=== PATIENT | male | born 1970 | race Caucasian/White ===

== ENCOUNTER 2019-01-02 07:34 | Emergency (ER) | payer OTHER ==
[~2019-01-02] VITALS: Ht 182.9 cm; Wt 74.8 kg
[2019-01-02] MEDS ORDERED: DOXYCYCLINE 100 MG (VIBRAMYCIN) TABLET PO STA (08:22)
[2019-01-02] MEDS ORDERED: DOXY100T2 PO (08:26)
--- NOTE | 2019-01-02 08:27 | ED Integumentary General ---
General Chief Complaint: Bite-Animal/Human/Insect Stated Complaint: TICK HEAD REMOVAL Nursing Triage Note: Patient states he discovered a tick on his scrotum last night in the shower, states he pulled the body out, but believes the head remained. Source: patient, RN notes reviewed Exam Limitations: no limitations History of Present Illness Date Seen by Provider: January 02, 2019 Time Seen by Provider: 07:58 Initial Comments Patient presents c/ c/o having a tick head embedded in the skin of his scrotum. Found the tick last PM and in effort of removing it accidental pulled the head off the body and has been unable to removed the embedded head. Timing/Duration: other (last PM) Location: genitalia Possible Cause: insect bite (tick) Modifying Factors: improves with other (none) Associated Symptoms: denies symptoms Allergies and Home Medications Allergies Coded Allergies: No Known Drug Allergies (Unverified , 01/02/19) Home Medications Doxycycline Hyclate 100 Mg Tablet, 100 MG PO BID Prescribed by: ARMANDO HERNANDEZ on 01/02/19 0887 Patient Home Medication List Home Medication List Reviewed: Yes Review of Systems Review of Systems Constitutional: see HPI Skin: see HPI, other (embedded tick head scrotum) Past Xfihagv-Khefsm-Xuojri Hx Patient Social History Alcohol Use: Denies Use Recreational Drug Use: No Smoking Status: Current Someday Smoker Type Used: Cigarettes 2nd Hand Smoke Exposure: No Recent Foreign Travel: No Contact w/Someone Who Travel: No Recent Infectious Disease Expo: No Recent Hopitalizations: No Physical Abuse: No Sexual Abuse: No Mistreated: No Fear: No Seasonal Allergies Seasonal Allergies: No Past Medical History Surgeries: Yes (cyst removal left wrist) Respiratory: No Cardiac: No Neurological: Yes Spinal Cord Injury Genitourinary: No Gastrointestinal: No Musculoskeletal: No Endocrine: No HEENT: No Cancer: No Psychosocial: No Integumentary: No Physical Exam Vital Signs Vital Signs - First Documented 01/02/19 07:45 Temp 98.0 Pulse 67 Resp 20 B/P (MAP) 111/71 (84) Pulse Ox 97 O2 Delivery Room Air Capillary Refill : Less Than 3 Seconds General Appearance: WD/WN, no apparent distress Cardiovascular: regular rate, rhythm Respiratory: no respiratory distress Neurologic/Psychiatric: no motor/sensory deficits, alert, normal mood/affect, oriented x 3 Skin: warm/dry Skin Problem Location: other (embedded tick head noted on scrotum) Skin Problem Character: erythema (mild) Lymphatic: no adenopathy Procedures/Interventions I&D : Site: scrotum Blade Size: bevel of 18g needle Progress Prepped c/ Hibiclens. Finally got the head out using the bevel of an 18g needle under magnification. Minimal bleeding incurred. Patient tolerated the procedure well. Progress/Results/Core Measures Results/Orders My Orders Orders - ARMANDO HERNANDEZ DO Doxycycline Hyclate Tablet (Vibramycin T (01/02/19 08:22) Dipht,Pertuss(Acell),Tet Adult (Boostrix (01/02/19 08:30) Vital Signs/I&O 01/02/19 07:45 Temp 98.0 Pulse 67 Resp 20 B/P (MAP) 111/71 (84) Pulse Ox 97 O2 Delivery Room Air Blood Pressure Mean: 84 Departure Impression Primary Impression: Embedded tick scrotum Disposition: 01 HOME, SELF-CARE Condition: Stable Departure-Patient Inst. Decision time for Depature: 08:24 Referrals: VY DAY DO Patient Instructions: Insect Bites and Stings (DC) Scripts Doxycycline Hyclate (Doxycycline Hyclate) 100 Mg Tablet 100 MG PO BID for tick bite for 10 Days, #20 TAB 0 Refills Prov: ARMANDO HERNANDEZ DO 01/02/19 ARMANDO HERNANDEZ DO January 02, 2019 08:27
[2019-01-02] MEDS ORDERED: TETANUS,DIPTH,PERTUSS P/F (BOOSTRIX) 0.5 ML VIAL IM ONE (08:30)
[2019-01-02 09:00] VITALS: BP 125/78
== END 2019-01-02 09:00 | disposition home or self-care (01) ==
LOC: ER FS 07:37
DX: S30.853A Superficial foreign body of scrotum and testes, initial encounter (principal); F17.210 Nicotine dependence, cigarettes, uncomplicated; Z23 Encounter for immunization; W45.8XXA Other foreign body or object entering through skin, initial encounter
CPT/HCPCS: 90715; 99283

== ENCOUNTER 2019-01-19 15:48 | Emergency (ER) | payer OTHER ==
[~2019-01-19] VITALS: Ht 182.9 cm; Wt 74.8 kg
[~2019-01-19 15:48] MED LIST: DOXY100T2 PO
[2019-01-19] MEDS ORDERED: CYCL10TA9 PO (16:28)
[2019-01-19] MEDS ORDERED: TRAM50TA2 PO (16:28)
--- NOTE | 2019-01-19 16:28 | ED Upper Extremity ---
General Chief Complaint: Upper Extremity Stated Complaint: SHOULDER AND BACK PAIN Nursing Triage Note: Patient reports he was working at the [employer] pulling a large trailer by hand when he began having right shoulder/upper back pain. He states the pain is made worse by lifting heavy objects. Nursing Sepsis Screen: No Definite Risk Source: patient History of Present Illness Date Seen by Provider: January 19, 2019 Time Seen by Provider: 16:23 Initial Comments Patient is a 48-year-old male who presents after work with upper thoracic/right posterior shoulder pain. Patient reports feeling sharp pain while lifting a heavy trailer at work earlier this afternoon. Pain is rated moderate to severe reproduces with palpation and shoulder rotation. Patient states symptoms feel different than prior rotator cuff injury. Denies chest pain shortness of breath. No fever chills, sweats. No other acute symptoms or complaints. Onset: this afternoon Pain/Injury Location: right shoulder Method of Injury: twisted Allergies and Home Medications Allergies Coded Allergies: bee venom protein (honey bee) (Verified Allergy, Unknown, 01/19/19) Home Medications Doxycycline Hyclate 100 Mg Tablet, 100 MG PO BID Prescribed by: ARMANDO HERNANDEZ on 01/02/19 4298 Patient Home Medication List Home Medication List Reviewed: Yes Review of Systems Constitutional: see HPI EENTM: see HPI Cardiovascular: no symptoms reported Gastrointestinal: no symptoms reported Genitourinary: no symptoms reported Musculoskeletal: see HPI Psychiatric/Neurological: No Symptoms Reported Past Lcmzswx-Bmgeqb-Hjcwsy Hx Past Med/Social Hx: Reviewed Nursing Past Med/Soc Hx Patient Social History Type Used: Cigarettes 2nd Hand Smoke Exposure: No Recent Foreign Travel: No Contact w/Someone Who Travel: No Recent Infectious Disease Expo: No Recent Hopitalizations: No Seasonal Allergies Seasonal Allergies: No Past Medical History Surgeries: Yes (cyst removal left wrist) Respiratory: No Cardiac: No Neurological: Yes Spinal Cord Injury Genitourinary: No Gastrointestinal: No Musculoskeletal: No Endocrine: No HEENT: No Cancer: No Psychosocial: No Integumentary: No Physical Exam Vital Signs Vital Signs - First Documented 01/19/19 16:00 Temp 98.5 Pulse 77 Resp 16 B/P (MAP) 133/72 (92) Pulse Ox 97 O2 Delivery Room Air Capillary Refill : Less Than 3 Seconds Height, Weight, BMI Height: 6'" Weight: 165lbs. oz. 74.505497hx; BMI Method:Stated General Appearance: WD/WN, no apparent distress HEENT: PERRL/EOMI Neck: full range of motion, normal inspection Respiratory: normal breath sounds Shoulder: normal ROM, pain, soft tissue tenderness (right posterior shoulder blade, tenderness, reproducing complaints) Elbow/Forearm: normal inspection Wrist: Yes normal inspection Hand: normal inspection Progress/Results/Core Measures Results/Orders Vital Signs/I&O 01/19/19 16:00 Temp 98.5 Pulse 77 Resp 16 B/P (MAP) 133/72 (92) Pulse Ox 97 O2 Delivery Room Air Blood Pressure Mean: 92 Departure Communication (Admissions) Right shoulder muscle sprain. Will treat supportively with PCP follow-up. Impression Primary Impression: Shoulder pain, right Disposition: HOME, SELF-CARE Condition: Improved Departure-Patient Inst. Decision time for Depature: 16:26 Referrals: NO,LOCAL PHYSICIAN (PCP) Primary Care Physician Patient Instructions: Muscle Spasms (DC), Shoulder Pain (DC) Add. Discharge Instructions: Please take ibuprofen for pain and tramadol and Flexeril as needed for additional relief. Limit lifting to less than 20 pounds until follow-up with your work comp her primary care physician. All discharge instructions reviewed with patient and/or family. Voiced understanding. Scripts Cyclobenzaprine HCl (Cyclobenzaprine HCl) 10 Mg Tablet 10 MG PO Q8H PRN for SPASMS, #30 TAB 0 Refills Prov: KETTY DEL RIO DO 01/19/19 Tramadol HCl (Tramadol HCl) 50 Mg Tablet 50 MG PO Q6H PRN for PAIN for 3 Days, #20 TAB 0 Refills Prov: KETTY DEL RIO DO 01/19/19 KETTY DEL RIO DO January 19, 2019 16:28
--- OUTSIDE RECORDS SUMMARY | 2019-01-19 16:32 | XMS REPORT | Continuity of Care Document ---
Author Organization Unknown Address Unknown Allergies Active Description Code Type Severity Reaction Onset Reported/Identified Relationship to Patient Clinical Status Yes No Known Drug Allergies [id number] Drug Allergy Unknown N/A 01/02/2019 Medications There is no data. Problems Date Dx Coded Attending Type Code Diagnosis Diagnosed By 01/02/2019 ARMANDO HERNANDEZ DO, Ot F17.210 NICOTINE DEPENDENCE, CIGARETTES, UNCOMPL 01/02/2019 ARMANDO HERNANDEZ DO Ot S30.853A SUPERFICIAL FOREIGN BODY OF SCROTUM AND 01/02/2019 ARMANDO HERNANDEZ DO, Ot W45.8XXA OTH FOREIGN BODY OR OBJECT ENTERING THRO 01/02/2019 ARMANDO HERNANDEZ DO Ot Z23 ENCOUNTER FOR IMMUNIZATION 01/04/2019 ARMANDO HERNANDEZ DO Ot F17.210 NICOTINE DEPENDENCE, CIGARETTES, UNCOMPL 01/04/2019 ARMANDO HERNANDEZ DO, Ot S30.853A SUPERFICIAL FOREIGN BODY OF SCROTUM AND 01/04/2019 ARMANDO HERNANDEZ DO, Ot W45.8XXA OTH FOREIGN BODY OR OBJECT ENTERING THRO 01/04/2019 ARMANDO HERNANDEZ DO Ot Z23 ENCOUNTER FOR IMMUNIZATION Procedures There is no data. Results There is no data. Encounters ACCT No. Visit Date/Time Discharge Status Pt. Type Provider Facility Loc./Unit Complaint [id number] 01/02/2019 07:37:00 01/02/2019 09:00:00 DIS Emergency ARMANDO HERNANDEZ DO [facility] ER FS TICK HEAD REMOVAL
[2019-01-19 16:50] VITALS: BP 133/72
== END 2019-01-19 16:54 | disposition home or self-care (01) ==
LOC: EDUNIT# 15:48 → ER FS 15:49
DX: M25.511 Pain in right shoulder (principal); Z91.030 Bee allergy status; X50.0XXA Overexertion from strenuous movement or load, initial encounter; Y92.59 Other trade areas as the place of occurrence of the external cause; Y99.0 Civilian activity done for income or pay
CPT/HCPCS: 99282

== ENCOUNTER 2019-07-02 07:30 | Emergency (ER) | payer OTHER ==
[~2019-07-02] VITALS: Ht 182.8 cm; Wt 71.9 kg
[~2019-07-02 07:30] MED LIST changes: +CYCL10TA9 PO; +TRAM50TA2 PO
--- NOTE | 2019-07-02 07:56 | ED Upper Extremity ---
General Chief Complaint: Upper Extremity Stated Complaint: RT WRIST INJ Source: patient Exam Limitations: no limitations History of Present Illness Date Seen by Provider: Jul 02, 2019 Time Seen by Provider: 07:40 Onset: yesterday Severity: moderate Pain/Injury Location: right wrist (right wrist pain) Method of Injury: fell Modifying Factors: Improves With Movement (makes it worse), Improves With Rest (makes it better) Allergies and Home Medications Allergies Coded Allergies: bee venom protein (honey bee) (Verified Allergy, Unknown, 01/19/19) Home Medications Cyclobenzaprine HCl 10 Mg Tablet, 10 MG PO Q8H PRN for SPASMS Prescribed by: KETTY DEL RIO on 01/19/19 1628 Doxycycline Hyclate 100 Mg Tablet, 100 MG PO BID Prescribed by: ARMANDO HERNANDEZ on 01/02/19 0826 Tramadol HCl 50 Mg Tablet, 50 MG PO Q6H PRN for PAIN Prescribed by: KETTY DEL RIO on 01/19/19 1628 Patient Home Medication List Home Medication List Reviewed: Yes Review of Systems Constitutional: no symptoms reported EENTM: no symptoms reported Respiratory: no symptoms reported Cardiovascular: no symptoms reported Gastrointestinal: no symptoms reported Genitourinary: no symptoms reported Musculoskeletal: joint pain (right wrist pain) Skin: no symptoms reported Psychiatric/Neurological: No Symptoms Reported All Other Systems Reviewed Negative Unless Noted: Yes Past Deyqpij-Guvvcj-Estzdj Hx Past Med/Social Hx: Reviewed Nursing Past Med/Soc Hx Patient Social History Alcohol Use: Denies Use Recreational Drug Use: No Smoking Status: Current Everyday Smoker Type Used: Electronic/Vapor 2nd Hand Smoke Exposure: No Recent Foreign Travel: No Recent Hopitalizations: No Physical Abuse: No Sexual Abuse: No Mistreated: No Fear: No Seasonal Allergies Seasonal Allergies: No Past Medical History Surgeries: Yes (cyst removal left wrist) Respiratory: No Cardiac: No Neurological: Yes Spinal Cord Injury Genitourinary: No Gastrointestinal: No Musculoskeletal: No Endocrine: No HEENT: No Cancer: No Psychosocial: No Integumentary: No Physical Exam Vital Signs Vital Signs - First Documented 07/02/19 07:35 Temp 35.5 Pulse 89 Resp 18 B/P (MAP) 142/85 (104) Pulse Ox 99 O2 Delivery Room Air Capillary Refill : Height, Weight, BMI Height: 6'" Weight: 165lbs. oz. 74.804434wu; BMI Method:Stated General Appearance: WD/WN, no apparent distress HEENT: PERRL/EOMI, normal ENT inspection, TMs normal, pharynx normal Neck: non-tender, full range of motion, supple, normal inspection Cardiovascular: normal peripheral pulses, regular rate, rhythm, no edema, no gallop, no JVD, no murmur Respiratory: chest non-tender, lungs clear, normal breath sounds, no respiratory distress, no accessory muscle use Gastrointestinal: normal bowel sounds, non tender, soft, no organomegaly, no pulsatile mass, abnormal bowel sounds Back: normal inspection, no CVA tenderness, no vertebral tenderness, CVA tenderness (R), CVA tenderness (L) Shoulder: normal inspection, non-tender, no evidence of injury, normal ROM, asymmetry, bone tenderness Elbow/Forearm: normal inspection, non-tender, no evidence of injury, normal ROM Wrist: Yes no evidence of injury, Yes normal ROM, Yes bone tenderness (dorsal right wrist, no deformity/dislocation, FROM right wrist present, no ecchymosis, appears atraumatic, CMS intact distally) Hand: normal inspection, non-tender, no evidence of injury, normal ROM Reflexes: 0 bicep (R); 3+ bicep (R); 0 bicep (L); 3+ bicep (L); 0 tricep (R); 3+ tricep (R); 0 tricep (L); 3+ tricep (L) Neurologic/Tendon: normal sensation, normal motor functions, normal tendon functions, responds to pain 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 The patient likely has a wrist sprain. He will go home with a wrist splint. Advise close follow-up with his primary care physician in the next 1-2 days and return to the emergency Department immediately for new or worsening symptoms. The patient expresses verbal understanding and agreement with the plan is stable for discharge. Diagnostic Imaging Diagonstic Imaging: Xray Comments [facility] POS [place], [place] POS NAME: MELODY SHABAZZ MED REC#: [id number] PT STATUS: REG ER : 1970 PHYSICIAN: TANNER HUNTER DO ADMIT DATE: 07/02/19/ER FS Draft POSDate of Exam:07/02/19 WRIST 3 VIEW RIGHT EXAMINATION: Right wrist radiograph, 3 views. COMPARISON: None. HISTORY: 49-year-old male, fall. Right wrist pain. FINDINGS: There is no identified acute fracture. There is no identified abnormal bone alignment. There is no radiopaque foreign body. The joint spaces are well-preserved. IMPRESSION: No identified acute bony abnormality at the level of the right wrist. Dictated on workstation # [id number] Dict: 07/02/19 0802 Trans: 07/02/19 0816 CV [id number] Interpreted by: ELLEN MÉNDEZ MD Electronically signed by: Departure Impression Primary Impression: Right wrist injury Disposition: 01 HOME, SELF-CARE Condition: Stable Departure-Patient Inst. Decision time for Depature: 08:29 Referrals: NO,LOCAL PHYSICIAN (PCP) Primary Care Physician [facility] Patient Instructions: Wrist Sprain (DC) Add. Discharge Instructions: Follow-up with your doctor in the next 2-3 days. Return to the emergency Department immediately for new or worsening symptoms. Wear the splint for comfort. Take ibuprofen or Tylenol home for pain relief as needed. TANNER HUNTER DO Jul 02, 2019 07:56 POS
--- NOTE | 2019-07-02 08:17 | Diagnostic Imaging Report ---
EXAMINATION: Right wrist radiograph, 3 views. COMPARISON: None. HISTORY: 49-year-old male, fall. Right wrist pain. FINDINGS: There is no identified acute fracture. There is no identified abnormal bone alignment. There is no radiopaque foreign body. The joint spaces are well-preserved. IMPRESSION: No identified acute bony abnormality at the level of the right wrist. Dictated by: Dictated on workstation # [id number]
[2019-07-02 08:44] VITALS: BP 142/85
== END 2019-07-02 08:46 | disposition home or self-care (01) ==
LOC: EDUNIT# 07:30 → ER FS 07:32
DX: S69.91XA Unspecified injury of right wrist, hand and finger(s), initial encounter (principal); F17.290 Nicotine dependence, other tobacco product, uncomplicated; W19.XXXA Unspecified fall, initial encounter
CPT/HCPCS: 73110